=== PATIENT | female | born 1955 | race Caucasian/White ===

== ENCOUNTER 2025-05-21 17:00 | Inpatient (IN) | payer MEDICARE, OTHER ==
[~2025-05-21] VITALS: Ht 165.1 cm; Wt 145.8 kg
[2025-05-21] MEDS ORDERED: ATOR40TA28 PO (18:15)
[2025-05-21] MEDS ORDERED: ALLO-97 PO (18:15)
[2025-05-21] MEDS ORDERED: MULT-264 PO (18:15)
[2025-05-21] MEDS ORDERED: BETA15CR TP (18:15)
[2025-05-21] MEDS ORDERED: ATEN-73 PO (18:15)
[2025-05-21] MEDS ORDERED: VRAYLOR PO (18:15)
[2025-05-21] MEDS ORDERED: CYCL-448 PO (18:15)
[2025-05-21] MEDS ORDERED: NIFE-141 PO (18:15)
[2025-05-21] MEDS ORDERED: CHOL200059 PO (18:15)
[2025-05-21] MEDS ORDERED: VENL50TA44 PO (18:15)
[2025-05-21] MEDS ORDERED: LOSA-382 PO (18:15)
[2025-05-21] MEDS ORDERED: ASPI-1450 PO (18:15)
[2025-05-21] MEDS ORDERED: FERR325T27 PO (18:15)
[2025-05-21] MEDS ORDERED: OXYB5TAB20 PO (18:15)
[2025-05-21] MEDS ORDERED: HYDR-4062 PO (18:15)
[2025-05-21] MEDS ORDERED: TOPI-257 PO (18:15)
[2025-05-21] MEDS ORDERED: ZOLP-162 PO (18:15)
[2025-05-21] MEDS ORDERED: CYAN100T45 PO (18:15)
[2025-05-21 18:44] LABS: PLATELET COUNT (AUTO) 225 K/uL (150-450); RED BLOOD CELL COUNT(AUTO) 4.25 MIL/uL (4.00-5.20); RED CELL DISTRIBUTION WIDTH 14.5 % (11.5-14.5); WHITE BLOOD COUNT (AUTO) 10.3 K/uL (4.5-11.0)
[2025-05-21 18:57] LABS: CALCIUM, TOTAL 8.3 mg/dL (8.8-10.5); CREATININE 0.90 mg/dL (0.60-1.30); GLOMERULAR FILTR. RATE CALC > 60 mL/min (>60); GLUCOSE,RANDOM 123 mg/dL (70-110); SODIUM SERUM 129 mmol/L (136-145); UREA NITROGEN, BLOOD 13 mg/dL (7-18)
[2025-05-21 19:05] LABS: TROPONIN I-HIGH SENSITIVITY 5 ng/L (<51)
[2025-05-21] MEDS: ACETAMINOPHEN 1000 MG/ISO-OSM 100 ML IV ONE (22:28)
[2025-05-21] MEDS: METOCLOPRAMIDE HCL 5 MG/ML 2 ML VIAL IVP ONE (22:28)
[2025-05-21] MEDS ORDERED: ONDANSETRON HCL 4 MG/2 ML VIAL IVP PRN (23:30)
[2025-05-21] MEDS ORDERED: ACETAMINOPHEN 325 MG TABLET PO PRN (23:30)
[2025-05-21] MEDS ORDERED: ZOLPIDEM TARTRATE 5 MG TABLET PO PRN (23:45)
[2025-05-22] MEDS: HEPARIN SODIUM,PORCINE 5,000 UNITS/ML VIAL SQ SCH (00:15)
[2025-05-22 05:16] LABS: CALCIUM, TOTAL 8.4 mg/dL (8.8-10.5); CREATININE 0.88 mg/dL (0.60-1.30); GLOMERULAR FILTR. RATE CALC > 60 mL/min (>60); GLUCOSE,RANDOM 95 mg/dL (70-110); SODIUM SERUM 132 mmol/L (136-145); UREA NITROGEN, BLOOD 15 mg/dL (7-18)
[2025-05-22 06:50] VITALS: BP 157/84; PULSE 84; RESP 20; TEMP 97.9; O2SAT 97
[2025-05-22 08:31] VITALS: BP 171/71; PULSE 76; RESP 18; TEMP 98.1; O2SAT 96
[2025-05-22] MEDS: DOCUSATE SODIUM 100 MG CAPSULE PO SCH (09:00)
[2025-05-22] MEDS: LOSARTAN POTASSIUM 50 MG TABLET PO SCH (09:20)
[2025-05-22] MEDS: FAMOTIDINE 20 MG TABLET PO SCH (09:21)
[2025-05-22] MEDS: POTASSIUM CHLORIDE 20 MEQ ER TABLET PO ONE (09:21)
[2025-05-22] MEDS: ASPIRIN 81 MG CHEWABLE TABLET PO SCH (09:21)
[2025-05-22] MEDS: TOPIRAMATE 25 MG TABLET PO SCH (09:22)
[2025-05-22] MEDS ORDERED: POTASSIUM CHLORIDE 20 MEQ ER TABLET PO PRN ×2 (09:45)
[2025-05-22] MEDS ORDERED: POTASSIUM CHL 10 MEQ/WATER 50 ML IV PRN ×2 (09:45)
[2025-05-22 10:55] LABS: APPEARANCE,URINE CLEAR (CLEAR); GLUCOSE, URINE (UA) NEGATIVE (NEGATIVE); LEUKOCYTE ESTERASE ,URINE MODERATE (NEGATIVE); NITRATE,URINE POSITIVE (NEGATIVE); OCCULT BLOOD,URINE NEGATIVE (NEGATIVE); SPECIFIC GRAVITIY, URINE 1.004 (1.003-1.030)
[2025-05-22] MEDS: OXYBUTYNIN CHLORIDE 5 MG ER TABLET PO SCH (10:57)
[2025-05-22] MEDS: VENLAFAXINE HCL 150 MG ER CAPSULE PO SCH (10:57)
[2025-05-22 11:14] VITALS: BP 149/64; PULSE 73; RESP 19; TEMP 98.4; O2SAT 95
[2025-05-22 15:53] VITALS: BP 134/55; PULSE 70; RESP 19; TEMP 98.2; O2SAT 96
[2025-05-22 19:40] VITALS: BP 154/62; PULSE 79; RESP 19; TEMP 98.1; O2SAT 94
[2025-05-22] MEDS: ATORVASTATIN CALCIUM 40 MG TABLET PO SCH (20:18)
[2025-05-22] MEDS: VRAYLAR 3 MG PO SCH (21:23)
[2025-05-22 22:00] VITALS: PULSE 128; RESP 19; O2SAT 95
[2025-05-23 00:16] VITALS: BP 148/66; PULSE 66; RESP 19; TEMP 98.4; O2SAT 95
[2025-05-23 04:25] VITALS: BP 135/55; PULSE 63; RESP 18; TEMP 98.1; O2SAT 95
[2025-05-23 07:58] VITALS: BP 160/74; PULSE 74; RESP 19; TEMP 98; O2SAT 95
[2025-05-23] MEDS ORDERED: CIPR250T6 PO (09:58)
[2025-05-23 11:27] VITALS: BP 127/53; PULSE 66; RESP 19; TEMP 97.7; O2SAT 95
[2025-05-23] MEDS: CefTRIAXone 1 GM/DEXTROSE 50 ML IV ONE (13:45)
== END 2025-05-23 15:45 | disposition home or self-care (01) | DRG 305 ==
LOC: EMS 17:05 → EDH 23:27 → 5S 05-22 06:15
PROVIDERS: ADMIT Internal Medicine; ATTEND Internal Medicine
PROC: 5A09357 Assistance with Respiratory Ventilation, Less than 24 Consecutive Hours, Continuous Positive Airway Pressure (ICD-10-PCS; principal; 2025-05-22)
DX: I16.0 Hypertensive urgency (principal); E87.1 Hypo-osmolality and hyponatremia; Z68.43 Body mass index [BMI] 50.0-59.9, adult; N39.0 Urinary tract infection, site not specified; G43.809 Other migraine, not intractable, without status migrainosus; E66.01 Morbid (severe) obesity due to excess calories; F32.A Depression, unspecified; I11.0 Hypertensive heart disease with heart failure; I50.9 Heart failure, unspecified; E78.00 Pure hypercholesterolemia, unspecified; G47.30 Sleep apnea, unspecified; I25.10 Atherosclerotic heart disease of native coronary artery without angina pectoris; R39.15 Urgency of urination; J45.909 Unspecified asthma, uncomplicated; Z82.49 Family history of ischemic heart disease and other diseases of the circulatory system; Z88.1 Allergy status to other antibiotic agents; Z88.2 Allergy status to sulfonamides; Z88.5 Allergy status to narcotic agent; Z88.6 Allergy status to analgesic agent; Z98.84 Bariatric surgery status; Z90.49 Acquired absence of other specified parts of digestive tract; Z88.8 Allergy status to other drugs, medicaments and biological substances; Z79.899 Other long term (current) drug therapy; Z79.82 Long term (current) use of aspirin
CPT/HCPCS: 70450; 71045; 80048; 81001; 84132; 84484; 85025; 87077; 87081; 87086; 87186; 93005; 94660; 94760; 96365; 96375; 99285; G0378; J0131; J0360; J0696; J1200; J1630; J1644; J2765; 36415-L1; 36415-TC